=== PATIENT | male | born 1990 | race Caucasian/White ===

== ENCOUNTER 2018-07-15 15:45 | Emergency (ER) | payer OTHER ==
--- NOTE | 2018-07-15 16:37 | ER ---
Nurse's Notes [facility] Name: Mike eHrnandez Age: 27 yrs Sex: Male : 1990 Arrival Date: 07/15/2018 Time: 15:49 Bed 11 Private MD: Diagnosis: Low back pain Presentation: 07/15 15:49 Presenting complaint: Patient states: S/P laminectomy on Jul 12, [facility], i hj just want my incision checked; pain is 7/10; denies numbness and tingling;. Transition of care: patient was not received from another setting of care. Onset of symptoms was July 15, 2018. Risk Assessment: Do you want to hurt yourself or someone else? Patient reports no desire to harm self or others. Initial Sepsis Screen: Does the patient meet any 2 criteria? No. Patient's initial sepsis screen is negative. Does the patient have a suspected source of infection? No. Patient's initial sepsis screen is negative. Care prior to arrival: None. 15:49 Method Of Arrival: Ambulatory 15:49 Acuity: LISA 4 hj Triage Assessment: 15:53 General: Appears in no apparent distress. uncomfortable, Behavior is calm, cooperative, hj appropriate for age. Pain: Complains of pain in back. Musculoskeletal: Circulation, motion, and sensation intact. Capillary refill. Historical: - Allergies: 15:53 No Known Allergies; hj - Home Meds: 15:53 Percocet 5-325 mg Oral tab 1 tab every 6 hours [Active]; Robaxin 500 mg Oral tab 2 tabs hj 4 times per day [Active]; gabapentin 600 mg oral tab 1 tab 3 times per day [Active]; Celebrex Oral [Active]; - PMHx: 15:53 Back pain; hj - PSHx: 15:53 back surgery; hj - Immunization history:: Adult Immunizations up to date. - Social history:: Smoking status: Patient/guardian denies using tobacco, Patient/guardian denies using alcohol. - Ebola Screening: : Patient negative for fever greater than or equal to 101.5 degrees Fahrenheit, and additional compatible Ebola Virus Disease symptoms Patient denies exposure to infectious person Patient denies travel to an Ebola-affected area in the 21 days before illness onset. Screenin:53 Abuse screen: Denies threats or abuse. Denies injuries from another. Nutritional hj screening: No deficits noted. Tuberculosis screening: No symptoms or risk factors identified. Fall Risk None identified. Assessment: 16:35 General: Appears in no apparent distress. comfortable, Behavior is calm, cooperative. mg2 Pain: Complains of pain in lumbar area and back Pain does not radiate. Pain currently is 6 out of 10 on a pain scale. Quality of pain is described as aching, Pain began gradually, Is intermittent. Neuro: Level of Consciousness is awake, alert, obeys commands, Oriented to person, place, time, situation. Cardiovascular: Capillary refill < 3 seconds Patient's skin is warm and dry. Respiratory: Airway is patent Respiratory effort is even, unlabored, Respiratory pattern is regular, symmetrical. GI: No signs and/or symptoms were reported involving the gastrointestinal system. : No signs and/or symptoms were reported regarding the genitourinary system. EENT: No signs and/or symptoms were reported regarding the EENT system. Derm: Skin is intact, is healthy with good turgor, Skin is pink, warm \T\ dry. normal, Wound noted lumbar area Wound is post op Other: clean, dressed with steri strips and tegaderm. Musculoskeletal: Circulation, motion, and sensation intact. Capillary refill < 3 seconds. Vital Signs: 15:54 BP 142 / 99; Pulse 73; Resp 18; Temp 97.8(TE); Pulse Ox 98% on R/A; Weight 62.6 kg; hj Height 5 ft. 6 in. (167.64 cm); Pain 8/10; 16:48 BP 135 / 78; Pulse 80; Resp 18; Pulse Ox 100% on R/A; Pain 3/10; mg2 15:54 Body Mass Index 22.28 (62.60 kg, 167.64 cm) ED Course: 15:49 Patient arrived in ED. hj 15:51 Triage completed. hj 15:53 Arm band placed on left wrist. hj 15:54 Patient has correct armband on for positive identification. Placed in gown. Bed in low hj position. Call light in reach. Side rails up X 1. 16:18 Asa Grant RN is Primary Nurse. mg2 16:19 Felipa Samano FNP-C is PHCP. kb 16:19 Usama Vuong MD is Attending Physician. kb 16:20 No provider procedures requiring assistance completed. Patient did not have IV access mg2 during this emergency room visit. Administered Medications: 16:35 Drug: [place] 10 mg-325 mg 1 tabs Route: PO; mg2 16:47 Follow up: Response: No adverse reaction; Medication administered at discharge. mg2 Outcome: 16:37 Discharge ordered by . kb 16:48 Discharged to home ambulatory, with family. mg2 16:48 Condition: stable 16:48 Discharge instructions given to patient, family, Instructed on discharge instructions, follow up and referral plans. medication usage, Demonstrated understanding of instructions, follow-up care, medications, Prescriptions given X 2. 16:48 Patient left the ED. mg2 Signatures: Felipa Samano, CHRISTIAN-C TEACHING ASSOCIATE-Jason Thibodeaux RN RN Asa Grant RN RN mg2 Corrections: (The following items were deleted from the chart) 15:55 15:54 Pulse 73bpm; Resp 18bpm; Pulse Ox 98% RA; Temp 97.8F Temporal; 62.6 kg; Height 5 hj ft. 6 in.; BMI: 22.2; Pain 8/10; hj 15:56 15:54 Pulse 73bpm; Resp 18bpm; Pulse Ox 98% RA; Temp 97.8F Temporal; 62.6 kg; Height 5 hj ft. 6 in.; BMI: 22.2; Pain 8/10; hj
--- NOTE | 2018-07-15 16:38 | EDPHYS ---
Physician Documentation [facility] Name: Mike Hernandez Age: 27 yrs Sex: Male : 1990 Arrival Date: 07/15/2018 Time: 15:49 Bed 11 Private MD: ED Physician Usama Vuong HPI: 07/15 16:34 This 27 yrs old Male presents to ER via Ambulatory with complaints of Back kb Pain. 16:34 The patient presents with pain that is acute. The symptoms are located in the low back. kb Onset: The symptoms/episode began/occurred 4 day(s) ago. The pain does not radiate. Associated signs and symptoms: The patient has no apparent associated signs or symptoms. The problem was sustained s/p laminectomy. Modifying factors: The patient symptoms are alleviated by nothing, the patient symptoms are aggravated by any movement. Severity of symptoms: At their worst the symptoms were moderate, in the emergency department the symptoms are unchanged. The patient has not experienced similar symptoms in the past. The patient has been recently seen by a physician:. Pt reports low back pain s/p laminectomy. Had surgery on 07/12/18 and was given 3 days worth of pain medication. Had surgery in [place] and was told 3 days of narcotics were all that was allowed to be prescribed. Has appt with pain management on 07/21/18, but pain is severe and he needs something to get through until then. Historical: - Allergies: 15:53 No Known Allergies; hj - Home Meds: 15:53 Percocet 5-325 mg Oral tab 1 tab every 6 hours [Active]; Robaxin 500 mg Oral tab 2 tabs hj 4 times per day [Active]; gabapentin 600 mg oral tab 1 tab 3 times per day [Active]; Celebrex Oral [Active]; - PMHx: 15:53 Back pain; hj - PSHx: 15:53 back surgery; hj - Immunization history:: Adult Immunizations up to date. - Social history:: Smoking status: Patient/guardian denies using tobacco, Patient/guardian denies using alcohol. - Ebola Screening: : Patient negative for fever greater than or equal to 101.5 degrees Fahrenheit, and additional compatible Ebola Virus Disease symptoms Patient denies exposure to infectious person Patient denies travel to an Ebola-affected area in the 21 days before illness onset. ROS: 16:34 Constitutional: Negative for fever, chills, and weight loss, Cardiovascular: Negative kb for chest pain, palpitations, and edema, Respiratory: Negative for shortness of breath, cough, wheezing, and pleuritic chest pain, Abdomen/GI: Negative for abdominal pain, nausea, vomiting, diarrhea, and constipation, MS/Extremity: Negative for injury and deformity, Skin: Negative for injury, rash, and discoloration, Neuro: Negative for headache, weakness, numbness, tingling, and seizure. 16:34 Back: Positive for pain at rest, pain with movement, of the lumbar area. Exam: 16:34 Constitutional: This is a well developed, well nourished patient who is awake, alert, kb and in no acute distress. Head/Face: Normocephalic, atraumatic. Neck: Trachea midline, no thyromegaly or masses palpated, and no cervical lymphadenopathy. Supple, full range of motion without nuchal rigidity, or vertebral point tenderness. No Meningismus. Chest/axilla: Normal chest wall appearance and motion. Nontender with no deformity. No lesions are appreciated. Cardiovascular: Regular rate and rhythm with a normal S1 and S2. No gallops, murmurs, or rubs. Normal PMI, no JVD. No pulse deficits. Respiratory: Lungs have equal breath sounds bilaterally, clear to auscultation and percussion. No rales, rhonchi or wheezes noted. No increased work of breathing, no retractions or nasal flaring. Abdomen/GI: Soft, non-tender, with normal bowel sounds. No distension or tympany. No guarding or rebound. No evidence of tenderness throughout. Skin: Warm, dry with normal turgor. Normal color with no rashes, no lesions, and no evidence of cellulitis. MS/ Extremity: Pulses equal, no cyanosis. Neurovascular intact. Full, normal range of motion. Neuro: Awake and alert, GCS 15, oriented to person, place, time, and situation. Cranial nerves II-XII grossly intact. Motor strength 5/5 in all extremities. Sensory grossly intact. Cerebellar exam normal. Normal gait. 16:34 Back: pain, that is moderate, of the lumbar area, post-op dressing in place. No signs of infection. Vital Signs: 15:54 BP 142 / 99; Pulse 73; Resp 18; Temp 97.8(TE); Pulse Ox 98% on R/A; Weight 62.6 kg; hj Height 5 ft. 6 in. (167.64 cm); Pain 8/10; 16:48 BP 135 / 78; Pulse 80; Resp 18; Pulse Ox 100% on R/A; Pain 3/10; mg2 15:54 Body Mass Index 22.28 (62.60 kg, 167.64 cm) hj MDM: 16:20 Patient medically screened. kb 16:33 Data reviewed: vital signs, nurses notes. Data interpreted: Pulse oximetry: on room air kb is 98 %. Interpretation: normal. Counseling: I had a detailed discussion with the patient and/or guardian regarding: the historical points, exam findings, and any diagnostic results supporting the discharge/admit diagnosis, the need for outpatient follow up, a family practitioner, to return to the emergency department if symptoms worsen or persist or if there are any questions or concerns that arise at home. Administered Medications: 16:35 Drug: [place] 10 mg-325 mg 1 tabs Route: PO; mg2 16:47 Follow up: Response: No adverse reaction; Medication administered at discharge. mg2 Disposition: 07/16 15:56 Co-signature as Attending Physician, Usama Vuong MD I agree with the assessment and kdr plan of care. Disposition: 07/15/18 16:37 Discharged to Home. Impression: Low back pain. - Condition is Stable. - Discharge Instructions: Back Pain, Adult, [id number]. - Prescriptions for Tylenol- Codeine #3 300-30 mg Oral Tablet - take 2 tablets by ORAL route every 6 hours As needed; 16 tablet. Cyclobenzaprine 10 mg Oral Tablet - take 1 tablet by ORAL route every 8 hours As needed; 30 tablet. - Medication Reconciliation Form, Thank You Letter, Antibiotic Education, Prescription Opioid Use form. - Follow up: Emergency Department; When: As needed; Reason: Worsening of condition. Follow up: Private Physician; When: 2 - 3 days; Reason: Recheck today's complaints, Continuance of care, Re-evaluation by your physician. Signatures: Felipa Samano, BREANNAC Usama Escobar MD MD [facility] Jason Good RN RN Asa Grant RN RN mg2 Corrections: (The following items were deleted from the chart) 07/15 16:48 16:37 07/15/2018 16:37 Discharged to Home. Impression: Low back pain. Condition is mg2 Stable. Forms are Medication Reconciliation Form, Thank You Letter, Antibiotic Education, Prescription Opioid Use. Follow up: Emergency Department; When: As needed; Reason: Worsening of condition. Follow up: Private Physician; When: 2 - 3 days; Reason: Recheck today's complaints, Continuance of care, Re-evaluation by your physician. kb
[2018-07-15] MEDS ORDERED: HYDROCODONE/APAP 10/325 TAB ONE (16:44)
== END 2018-07-15 16:48 | disposition home or self-care (01) ==
LOC: ER 15:45
DX: M54.5 Low back pain (principal)
CPT/HCPCS: 99283

== ENCOUNTER 2019-12-12 10:33 | Emergency (ER) | payer OTHER ==
[2019-12-12 11:54] LABS: Absolute Lymphocytes (CBC) 0.9 K/uL (0.7-4.9); Basophils % 0.3 % (0-1.3); Hematocrit 53.1 % (39.6-49.0); Lymphocytes % 8.9 % (15.3-44.8); MPV 7.3 fL (7.6-11.3); RBC Red Blood Cell Count 5.94 M/uL (4.33-5.43)
[2019-12-12] MEDS ORDERED: NA CHLORIDE 0.9% 1,000 ML ONE (12:10)
[2019-12-12] MEDS ORDERED: ONDANSETRON 4 MG/2 ML VIAL ONE (12:10)
[2019-12-12 12:33] LABS: Albumin 5.3 g/dL (3.4-5.0); Bilirubin Direct 0.2 mg/dL (0-0.2); Bilirubin Total 1.3 mg/dL (0.2-1.0); Potassium 3.8 mmol/L (3.5-5.1); Protein, Total 9.5 g/dL (6.4-8.2)
--- NOTE | 2019-12-12 13:00 | RAD REPORT ---
EXAM DESCRIPTION: CT - Abdomen Pelvis W Contrast - 12/12/2019 12:37 pm CLINICAL HISTORY: Abdominal pain COMPARISON: none. TECHNIQUE: Computed axial tomography of the abdomen pelvis was obtained. 100 cc Isovue-300 was admin istered intravenously. Oral contrast was not requested which limits evaluation of bowel. All CT scans are performed using dose optimization technique as appropriate and may include automated exposure control or mA/KV adjustment according to patient size. FINDINGS: The liver, pancreas, adrenal and kidneys appear unremarkable. Tiny low-density area within the spleen The appendix is upper limits normal caliber. No stranding within the adjacent fat. There is no evidence of diverticulitis. Neurostimulator device in place IMPRESSION: Appendix is upper limits normal caliber. No stranding within the adjacent fat. Most like ly this is a normal variant. This should be correlated clinically. Tiny low-density area within the spleen too small to characterize. Most likely it is benign
[2019-12-12 14:30] VITALS: TEMP 97.1; O2SAT 100
[2019-12-12 14:31] VITALS: BP 127/81
--- NOTE | 2019-12-15 17:01 | ER ---
Nurse's Notes [facility] Name: Mike Hernandez Age: 29 yrs Sex: Male : 1990 Arrival Date: 12/12/2019 Time: 10:34 Bed 7 Private MD: Diagnosis: Left lower quadrant abdominal tenderness;Nausea and vomiting Presentation: 12/11 10:44 Chief complaint: Patient states: LUQ pain radiating to LLQ, N/V/D, denies fever, ph symptoms began yesterday. Coronavirus screen: Patient denies a cough. Patient denies shortness of breath or difficulty breathing. Patient denies measured and/or subjective temperature greater than 100.4F prior to today's visit. Patient denies travel on a cruise ship or to a country the [facility] currently lists as an affected area. Patient denies contact with known and/or suspected case of COVID-19. Ebola Screen: No symptoms or risks identified at this time. Initial Sepsis Screen: Does the patient meet any 2 criteria? No. Patient's initial sepsis screen is negative. Does the patient have a suspected source of infection? No. Patient's initial sepsis screen is negative. Risk Assessment: Do you want to hurt yourself or someone else? Patient reports no desire to harm self or others. 10:44 Method Of Arrival: Ambulatory ph 10:44 Acuity: LISA 3 ph Historical: - Allergies: 10:46 No Known Allergies; ph - PMHx: 10:46 Back pain; ph - PSHx: 10:46 back surgery; ph - Immunization history:: Adult Immunizations unknown. - Social history:: Smoking status: Patient denies any tobacco usage or history of. Screenin:45 Abuse screen: Denies threats or abuse. Denies injuries from another. Nutritional jl7 screening: No deficits noted. Tuberculosis screening: No symptoms or risk factors identified. Fall Risk IV access (20 points). Total Renteria Fall Scale indicates No Risk (0-24 pts). Assessment: 11:40 General: Appears in no apparent distress. uncomfortable, Behavior is calm, cooperative, jl7 appropriate for age. Pain: Complains of pain in left upper quadrant and left lower quadrant. Neuro: Level of Consciousness is awake, alert, obeys commands, Oriented to person, place, time, situation. Cardiovascular: Patient's skin is warm and dry. Respiratory: Airway is patent. GI: Abdomen is non-distended, Reports upper abdominal pain, Patient currently denies constipation, diarrhea, nausea, vomiting. Derm: Skin is pink, warm \T\ dry. 11:45 Reassessment: MARY Teixeira at bedside assessing pt. jl7 13:00 Reassessment: Patient appears in no apparent distress at this time. Patient and/or jl7 family updated on plan of care and expected duration. Pain level reassessed. Patient is alert, oriented x 3, equal unlabored respirations, skin warm/dry/pink. 14:00 Reassessment: Patient appears in no apparent distress at this time. Patient and/or jl7 family updated on plan of care and expected duration. Pain level reassessed. Patient is alert, oriented x 3, equal unlabored respirations, skin warm/dry/pink. Patient states symptoms have improved. Vital Signs: 10:44 BP 145 / 97; Pulse 111; Resp 18; Temp 97.1; Pulse Ox 100% on R/A; Weight 74.84 kg; ph Height 5 ft. 7 in. (170.18 cm); 14:00 BP 127 / 81; Pulse 71; Resp 16; Pulse Ox 100% ; jl7 10:44 Body Mass Index 25.84 (74.84 kg, 170.18 cm) ph ED Course: 10:34 Patient arrived in ED. ag5 10:45 Triage completed. ph 10:46 Arm band placed on right wrist. Patient placed in waiting room, Patient notified of ph wait time. 11:29 Puneet Banerjee PA is PHCP. jr8 11:29 Chuy Bragg MD is Attending Physician. jr8 11:29 Kwasi Sams RN is Primary Nurse. jl7 11:40 Initial lab(s) drawn, by [facility], sent to lab. Inserted saline lock: 22 gauge in left jl7 antecubital area, using aseptic technique. Blood collected. 11:45 Patient has correct armband on for positive identification. Bed in low position. Call [facility] emergency room light in reach. Side rails up X 1. Pulse ox on. NIBP on. 12:37 CT Abd/Pelvis - IV Contrast Only In Process Unspecified. EDMS 14:05 Bryson Mccarthy MD is Referral Physician. jr8 14:20 No provider procedures requiring assistance completed. IV discontinued, intact, jl7 bleeding controlled, No redness/swelling at site. Pressure dressing applied. Administered Medications: 12:08 Drug: NS 0.9% 1000 ml Route: IV; Rate: 1000 ml; Site: left antecubital; jl7 13:00 Follow up: Response: No adverse reaction; IV Status: Completed infusion; IV Intake: jl7 1000ml 12:08 Drug: Zofran (Ondansetron) 4 mg Route: IVP; Site: left antecubital; jl7 12:30 Follow up: Response: No adverse reaction; Nausea is decreased jl7 Intake: 13:00 IV: 1000ml; Total: 1000ml. jl7 Outcome: 14:05 Discharge ordered by . nora 14:20 Discharged to home ambulatory. jl7 14:20 Condition: stable 14:20 Discharge instructions given to patient, Instructed on discharge instructions, follow up and referral plans. medication usage, Demonstrated understanding of instructions, follow-up care, medications, Prescriptions given X 2. 14:20 Patient left the ED. jl7 Signatures: Dispatcher [employer] EDMS Puneet Banerjee PA PA jr8 Manisha Rubin, RN RN Kwasi Meyer RN RN jl7 Jamari Aponte ag5
--- NOTE | 2019-12-15 17:01 | EDPHYS ---
Physician Documentation [facility] Name: Mike Hernandez Age: 29 yrs Sex: Male : 1990 Arrival Date: 12/12/2019 Time: 10:34 Bed 7 Private MD: ED Physician Chuy Bragg HPI: 12/11 11:53 This 29 yrs old Male presents to ER via Ambulatory with complaints of jr8 Abdominal Pain, Nausea/Vomiting. 11:53 The patient presents with abdominal pain in the left upper quadrant, in the left lower jr8 quadrant. Onset: The symptoms/episode began/occurred gradually, 3 day(s) ago. The symptoms do not radiate. Associated signs and symptoms: Pertinent positives: nausea and vomiting. The symptoms are described as stabbing. Modifying factors: The symptoms are alleviated by nothing, the symptoms are aggravated by food. Severity of pain: At its worst the pain was mild in the emergency department the pain is unchanged. The patient has not experienced similar symptoms in the past. The patient has not recently seen a physician. Stated that he has lost about 10 pounds in the past couple of days. Historical: - Allergies: 10:46 No Known Allergies; ph - PMHx: 10:46 Back pain; ph - PSHx: 10:46 back surgery; ph - Immunization history:: Adult Immunizations unknown. - Social history:: Smoking status: Patient denies any tobacco usage or history of. ROS: 11:53 Eyes: Negative for injury, pain, redness, and discharge, ENT: Negative for injury, jr8 pain, and discharge, Neck: Negative for injury, pain, and swelling, Cardiovascular: Negative for chest pain, palpitations, and edema, Respiratory: Negative for shortness of breath, cough, wheezing, and pleuritic chest pain, Back: Negative for injury and pain, MS/Extremity: Negative for injury and deformity, Skin: Negative for injury, rash, and discoloration, Neuro: Negative for headache, weakness, numbness, tingling, and seizure. 11:53 Abdomen/GI: Positive for abdominal pain, nausea and vomiting, Negative for diarrhea, constipation, abdominal cramps, abdominal distension, anorexia, dysphagia, hematemesis, black/tarry stool, rectal pain, rectal bleeding, bowel incontinence, flatulence. Exam: 11:53 Eyes: Pupils equal round and reactive to light, extra-ocular motions intact. Lids and jr8 lashes normal. Conjunctiva and sclera are non-icteric and not injected. Cornea within normal limits. Periorbital areas with no swelling, redness, or edema. ENT: Nares patent. No nasal discharge, no septal abnormalities noted. Tympanic membranes are normal and external auditory canals are clear. Oropharynx with no redness, swelling, or masses, exudates, or evidence of obstruction, uvula midline. Mucous membranes moist. Neck: Trachea midline, no thyromegaly or masses palpated, and no cervical lymphadenopathy. Supple, full range of motion without nuchal rigidity, or vertebral point tenderness. No Meningismus. Cardiovascular: Regular rate and rhythm with a normal S1 and S2. No gallops, murmurs, or rubs. Normal PMI, no JVD. No pulse deficits. Respiratory: Lungs have equal breath sounds bilaterally, clear to auscultation and percussion. No rales, rhonchi or wheezes noted. No increased work of breathing, no retractions or nasal flaring. Back: No spinal tenderness. No costovertebral tenderness. Full range of motion. Skin: Warm, dry with normal turgor. Normal color with no rashes, no lesions, and no evidence of cellulitis. MS/ Extremity: Pulses equal, no cyanosis. Neurovascular intact. Full, normal range of motion. Neuro: Awake and alert, GCS 15, oriented to person, place, time, and situation. Cranial nerves II-XII grossly intact. Motor strength 5/5 in all extremities. Sensory grossly intact. Cerebellar exam normal. Normal gait. 11:53 Abdomen/GI: Inspection: abdomen appears normal, Bowel sounds: active, all quadrants, Palpation: soft, in all quadrants, moderate abdominal tenderness, in the left lower quadrant, mass, is not appreciated, rebound tenderness, is not appreciated, voluntary guarding, is not appreciated, involuntary guarding, is not appreciated, no appreciated organomegaly, Indicators: McBurney's point is not tender, Cook's sign is negative, Rovsing's sign is negative, Liver: tenderness, is not appreciated. Vital Signs: 10:44 BP 145 / 97; Pulse 111; Resp 18; Temp 97.1; Pulse Ox 100% on R/A; Weight 74.84 kg; ph Height 5 ft. 7 in. (170.18 cm); 14:00 BP 127 / 81; Pulse 71; Resp 16; Pulse Ox 100% ; jl7 10:44 Body Mass Index 25.84 (74.84 kg, 170.18 cm) ph MDM: 11:29 Patient medically screened. 14:04 Data reviewed: vital signs, nurses notes, lab test result(s), radiologic studies, CT jr8 scan, and as a result, I will discharge patient. Data interpreted: Pulse oximetry: on room air is 100 %. Interpretation: normal. Counseling: I had a detailed discussion with the patient and/or guardian regarding: the historical points, exam findings, and any diagnostic results supporting the discharge/admit diagnosis, lab results, radiology results, the need for outpatient follow up, a family practitioner, to return to the emergency department if symptoms worsen or persist or if there are any questions or concerns that arise at home. Response to treatment: the patient's symptoms have mildly improved after treatment. Special discussion: Based on the patient's Hx, exam, and Dx evaluation, there is no indication for emergent surgery or inpatient Tx. It is understood by the patient/guardian that if the Sx's persist or worsen they need to return immediately for re-evaluation. 12/11 11:29 Order name: Basic Metabolic Panel; Complete Time: 13:12/11 11:29 Order name: CBC with Diff; Complete Time: 11:57 12/11 11:29 Order name: Hepatic Function; Complete Time: 13:12/11 11:29 Order name: Lipase; Complete Time: 13:12/11 11:57 Order name: CT Abd/Pelvis - IV Contrast Only; Complete Time: 13:12/11 11:29 Order name: IV Saline Lock; Complete Time: 11:47 12/11 11:29 Order name: Labs collected and sent; Complete Time: 11:47 Administered Medications: 12:08 Drug: NS 0.9% 1000 ml Route: IV; Rate: 1000 ml; Site: left antecubital; jl7 13:00 Follow up: Response: No adverse reaction; IV Status: Completed infusion; IV Intake: jl7 1000ml 12:08 Drug: Zofran (Ondansetron) 4 mg Route: IVP; Site: left antecubital; jl7 12:30 Follow up: Response: No adverse reaction; Nausea is decreased jl7 Disposition: 12/12 07:42 Co-signature as Attending Physician, Chuy Bragg MD I agree with the assessment and [facility] of care. Disposition: 12/12/19 14:05 Discharged to Home. Impression: Left lower quadrant abdominal tenderness, Nausea and vomiting. - Condition is Stable. - Discharge Instructions: Abdominal Pain, Adult, Nausea and Vomiting, Adult. - Prescriptions for Bentyl 20 mg Oral Tablet - take 1 tablet by ORAL route every 6 hours As needed; 20 tablet. Zofran 4 mg Oral Tablet - take 1 tablet by ORAL route every 12 hours As needed; 20 tablet. - Work release form, Medication Reconciliation Form, Thank You Letter, Antibiotic Education, Prescription Opioid Use form. - Follow up: Bryson Mccarthy MD; When: 5 - 6 days; Reason: Recheck today's complaints, Continuance of care, Re-evaluation by your physician. - Problem is new. - Symptoms have improved. Signatures: Dispatcher [employer] EDMO Chuy Bragg MD MD cha Roszak, Josh, PA PA jr8 Manisha Rubin, RN RN ph Kwasi Sams RN RN jl7 Corrections: (The following items were deleted from the chart) 12/11 14:20 14:05 12/12/2019 14:05 Discharged to Home. Impression: Left lower quadrant abdominal jl7 tenderness; Nausea and vomiting. Condition is Stable. Forms are Medication Reconciliation Form, Thank You Letter, Antibiotic Education, Prescription Opioid Use. Follow up: Bryson Mccarthy; When: 5 - 6 days; Reason: Recheck today's complaints, Continuance of care, Re-evaluation by your physician. Problem is new. Symptoms have improved. jr8
== END 2019-12-12 14:20 | disposition home or self-care (01) ==
LOC: ER 10:33
DX: R11.2 Nausea with vomiting, unspecified (principal)
CPT/HCPCS: 96361; 85025; 80048; 36415; 80076; 83690; 74177; 96374; 99284; Q9967; J7030; J2405

== ENCOUNTER 2020-06-07 10:04 | Emergency (ER) | payer OTHER ==
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
[2020-06-07] MEDS ORDERED: HYDROCODONE/APAP 7.5/325 MG TAB ONE (10:45)
[2020-06-07] MEDS ORDERED: KETOROLAC 30 MG/ML INJ ONE (10:45)
[2020-06-07] MEDS ORDERED: TETANUS & DIPHTHERIA TOX,ADULT 0.5 ML VIAL ONE (10:45)
== END 2020-06-07 10:54 | disposition home or self-care (01) ==
LOC: ER 10:04
DX: T22.231A Burn of second degree of right upper arm, initial encounter (principal); T22.211A Burn of second degree of right forearm, initial encounter; X10.2XXA Contact with fats and cooking oils, initial encounter; Y93.9 Activity, unspecified; Y92.9 Unspecified place or not applicable; Z23 Encounter for immunization
CPT/HCPCS: 90471; 90714; 96372; 99282

== ENCOUNTER 2020-06-08 08:42 | Emergency (ER) | payer OTHER ==
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
[2020-06-08 11:17] VITALS: BP 119/76; TEMP 99.7; O2SAT 99
== END 2020-06-08 09:20 | disposition home or self-care (01) ==
LOC: ER 08:42
DX: B34.9 Viral infection, unspecified (principal); Z20.828 Contact with and (suspected) exposure to other viral communicable diseases; T22.211D Burn of second degree of right forearm, subsequent encounter; G89.29 Other chronic pain
CPT/HCPCS: 87804 ×2; 99282; U0002

== ENCOUNTER 2020-06-15 19:47 | Emergency (ER) | payer OTHER ==
[2020-06-15] MEDS ORDERED: HYDROCODONE/APAP 7.5/325 MG TAB PO PRN (20:18)
[2020-06-15] MEDS ORDERED: HYDROCODONE/APAP 7.5/325 MG TAB ONE (20:30)
[2020-06-15] MEDS ORDERED: KETOROLAC 30 MG/ML INJ ONE (21:36)
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
--- NOTE | 2020-06-16 08:40 | RAD REPORT ---
EXAM DESCRIPTION: RAD - Knee Left 3 View - 06/15/2020 9:03 pm CLINICAL HISTORY: pain COMPARISON: No comparisons FINDINGS: No fracture or dislocation seen. No significant joint effusion. Mild soft tissue swelling is seen anterior to the patellar tendon.
== END 2020-06-15 22:31 | disposition home or self-care (01) ==
LOC: ER 19:47
DX: S83.92XA Sprain of unspecified site of left knee, initial encounter (principal)
CPT/HCPCS: 96372; 99283